=== PATIENT | female | born 1945 | race Hispanic/Latino ===

== ENCOUNTER 2019-04-25 20:30 | Outpatient (CLI) | payer OTHER, MEDICAID | END 2019-04-25 20:31 | disposition home or self-care (01) | LOC: SLEEPLAB 20:30 | PROVIDERS: ATTEND Family Medicine | DX: G47.33 Obstructive sleep apnea (adult) (pediatric) (principal); R06.83 Snoring; G47.00 Insomnia, unspecified; G47.10 Hypersomnia, unspecified; I10 Essential (primary) hypertension | CPT/HCPCS: 95811 ==

== ENCOUNTER 2023-08-26 17:00 | Outpatient (CLI) | payer OTHER, MEDICARE, MEDICAID | END 2023-08-26 17:01 | disposition home or self-care (01) | LOC: SLEEPLAB 17:00 | PROVIDERS: ATTEND Nurse Practitioner Family | DX: G47.33 Obstructive sleep apnea (adult) (pediatric) (principal) | CPT/HCPCS: 95810 ==

== ENCOUNTER 2024-07-06 07:41 | Outpatient (CLI) | payer OTHER, MEDICAID | END 2024-07-06 07:42 | disposition home or self-care (01) | LOC: ULT 07:41 | PROVIDERS: ATTEND Nurse Practitioner Family | DX: R74.8 Abnormal levels of other serum enzymes (principal) | CPT/HCPCS: 76700 ==

== ENCOUNTER 2024-08-12 12:21 | Outpatient (CLI) | payer OTHER, MEDICAID | END 2024-08-12 12:22 | disposition home or self-care (01) | LOC: MRI 12:21 | PROVIDERS: ATTEND Nurse Practitioner Family | DX: M51.16 Intervertebral disc disorders with radiculopathy, lumbar region (principal); G89.29 Other chronic pain; M43.16 Spondylolisthesis, lumbar region; M47.816 Spondylosis without myelopathy or radiculopathy, lumbar region; M48.061 Spinal stenosis, lumbar region without neurogenic claudication; M47.814 Spondylosis without myelopathy or radiculopathy, thoracic region; M51.34 Other intervertebral disc degeneration, thoracic region; M48.07 Spinal stenosis, lumbosacral region; M43.17 Spondylolisthesis, lumbosacral region; G96.191 Perineural cyst | CPT/HCPCS: 72148 ==

== ENCOUNTER 2025-09-21 15:04 | Outpatient (CLI) | payer OTHER ==
[2025-09-21 15:28] LABS: Estimated GFR - POC 65.0
== END 2025-09-21 15:05 | disposition home or self-care (01) ==
LOC: SCSMRI 15:04
PROVIDERS: ATTEND Family Medicine
DX: R42 Dizziness and giddiness (principal); I67.82 Cerebral ischemia; I73.9 Peripheral vascular disease, unspecified; E03.9 Hypothyroidism, unspecified; I48.20 Chronic atrial fibrillation, unspecified
CPT/HCPCS: 36415; 70553; 76376; 80053; 80061; 82565; 83036; 84443; 85025